=== PATIENT | male | born 1965 | race Caucasian/White ===

== ENCOUNTER 2017-07-24 09:11 | Emergency (ER) ==
[2017-07-24 09:17] VITALS: TEMP 97.2; BMI 31.4
--- NOTE | 2017-07-24 09:26 | ED.PDOC ---
General ED Provider: Dr. MAE DE LA TORRE Chief Complaint: Fall Stated Complaint: Falling episode/injury to rib cage Time Seen by Physician: 20:00 Mode of Arrival: Walk-In Information Source: Patient Referred to ED by: Other (Self) Nursing and Triage Documentation Reviewed and Agree: Yes Reviewed sepsis parameters & appropriate labs ordered?: No System Inflammatory Response Syndrome: Not Applicable Sepsis Protocol: For patient's 13 years and over: Temp is 96.8 and below OR 101 and greater Pulse >90 BPM Resp >20/minute Acutely Altered Mental Status Are patient's symptoms suggestive of a new infection, such as: -Pneumonia -Skin, Soft Tissue -Endocarditis -UTI -Bone, Joint Infection -Implantable Device -Acute Abdominal Infection -Wound Infection -Meningitis -Blood Stream Catheter Infection -Unknown System Inflammatory Response Syndrome: Not Applicable Trauma/Injury Complaint Exam - Truncal Trauma Complaint/Exam Location of Pain: Reports: Right, Anterior, Chest Onset: This Morning Symptoms Are: Still present Onset of Pain: Reports: Immediate Initial Severity: Moderate Current Severity: Moderate Mechanism: Reports: Blunt trauma, Direct blow, Fall Aggravating: Reports: Movement, Deep breathing, Cough Alleviating: Reports: Rest Associated Signs and Symptoms: Reports: Chest pain Related History: Reports: Occupational injury. Denies: Similar episode, Anticoagulants, Prior rib fracture, COPD Vertebral Tenderness Present: No Vertebral Deformity Present: No Trachial Deviation Present: No JVD Present: No Crepitus Present: No Diminished Breath Sounds: No Muffled Heart Sounds Present: No Paradoxical Chest Wall Movement Present: No Abdominal Guarding Present: No Abdominal Rigidity Present: No Referred Shoulder Pain (Kehr's Sign) Present: No Skin Findings: Present: Normal findings Differential Diagnoses: Chest Wall Contusion Review of Systems - Review Of Systems Constitutional: Reports: No symptoms Eyes: Reports: No symptoms Ears, Nose, Mouth, Throat: Reports: No symptoms Respiratory: Reports: No symptoms, Other (direct blow concrete floor when lost balance and fell to the floor) Cardiac: Reports: No symptoms GI: Reports: No symptoms : Reports: No symptoms Musculoskeletal: Reports: No symptoms, Other (rib and chest wall pain ) Skin: Reports: No symptoms Neurological: Reports: No symptoms Endocrine: Reports: No symptoms Hematologic/Lymphatic: Reports: No symptoms All Other Systems: Reviewed and Negative Past Medical History - Past Medical History Endocrine: Reports: None Cardiovascular: Reports: None Respiratory: Reports: None Hematological: Reports: None Gastrointestinal: Reports: None Genitourinary: Reports: None Neuro/Psych: Reports: None Musculoskeletal: Reports: None Cancer: Reports: None - Surgical History General Surgical History: Reports: None, Unknown - Family History Family History: Reports: Unknown - Social History Smoking Status: Current every day smoker Hx Substance Use: No Alcohol Screening: Occasionally Physical Exam - Physical Exam Appearance: Well-appearing Ill-appearing: None Pain Distress: Moderate Eyes: BETSY, EOMI ENT: Ears normal, Nose normal, Oropharynx normal Neck: Nonsupple Respiratory: Airway patent, Breath sounds clear, Breath sounds equal Cardiovascular: RRR, Pulses normal GI/: Soft, Nontender, No masses, Bowel sounds normal Musculoskeletal: Normal strength (Tenderness ) Skin: Warm, Dry, Normal color Neurological: Sensation intact, Motor intact, Alert, Oriented Psychiatric: Affect appropriate Re-Evaluation - Re-Evaluation Time of Re-Evaluation: 12:30 Status: Improved Appearance: NAD Lungs: Clear Skin: Warm and Dry Neuro: Alert and Oriented X3 CV: RRR Additional Comments: Explained results of testing and may be discharged- Critical Care Note - Critical Care Note Total Time (mins): 0 Course - Course Hematology/Chemistry: 07/24/17 11:00 07/24/17 11:00 Orders, Labs, Meds: Lab Review 07/24/17 07/24/17 11:00 11:00 WBC 9.76 RBC 5.65 Hgb 17.3 Hct 47.6 MCV 84.2 MCH 30.6 MCHC 36.3 H RDW Coeff of Ned 12.3 Plt Count 250 Immature Gran % (Auto) 0.2 Neut % (Auto) 61.4 Lymph % (Auto) 25.1 [place] % (Auto) 10.7 H Eos % (Auto) 2.0 Baso % (Auto) 0.6 Immature Gran # (Auto) 0.0 Neut # 6.0 Lymph # 2.5 [place] # 1.0 Eos # 0.2 Baso # 0.1 Sodium 135 L Potassium 4.2 Chloride 101 Carbon Dioxide 27 Anion Gap 11.2 BUN 11 Creatinine 0.78 Estimated GFR (MDRD) 104.00 BUN/Creatinine Ratio 14.10 Glucose 113 H Calcium 9.7 Total Bilirubin 0.6 AST 19 ALT 25 Alkaline Phosphatase 93 Total Protein 7.7 Albumin 4.1 Globulin 3.6 Albumin/Globulin Ratio 1.14 Orders Category Date Time Status IV ACCESS ONCE CARE 07/24/17 10:50 Active NPO REMINDER: IMAGING ONCE CARE 07/24/17 11:29 Completed CBC W/ AUTO DIFF Stat LAB 07/24/17 11:00 Completed CMP [COMPREHENSIVE METABOLIC PANEL] Stat LAB 07/24/17 11:00 Completed Ketorolac Tromethamine [Toradol] MEDS 07/24/17 11:26 Discontinued 30 mg IVP ONCE STA CHEST, 2 VIEWS PA & LAT Stat RADS 07/24/17 10:[address] CHEST W/WO CONTRAST Stat RADS 07/24/17 11:28 Completed RIBS, UNILATERAL RIGHT Stat RADS 07/24/17 10:08 Completed Medications Discontinued Medications Generic Name Dose Route Start Last Admin Trade Name Freq PRN Reason Stop Dose Admin Ketorolac Tromethamine 30 mg 07/24/17 11:26 07/24/17 11:35 Toradol IVP 07/24/17 11:27 30 mg ONCE STA Administration Vital Signs: Temp Pulse Resp BP Pulse Ox 07/24/17 09:12 97.2 F L 78 20 158/101 H 97 Departure - Departure Time of Disposition: 12:45 Disposition: HOME SELF-CARE Discharge Problem: Chest wall injury, Rib contusion Instructions: Rib Contusion (ED) Condition: Good Pt referred to PMD for follow-up: Yes (in 3-5 days) IPMP verified?: No Additional Instructions: May take Toradol 10 mg 1 tablet every 6 hours for control of pain -DO NOT Exceed 20 tablets in in 1 week May also take Tylenol ES 2 every 6 hrs. for additional pain relief ICE pack therapy to site of discomfort on chest wall for 20-30 minutes 3 times daily, Follow up PCP for re evaluation Take all meds as directed Prescriptions: Ketorolac Tromethamine [Toradol] 10 mg PO Q6H PRN #20 tablet PRN Reason: Chest wall pain Allergies/Adverse Reactions: Allergies No Known Allergies Allergy (Verified 07/24/17 09:17) Home Medications: Ambulatory Orders Ketorolac Tromethamine [Toradol] 10 mg PO Q6H PRN #20 tablet 07/24/17 Disposition Discussed With: Patient, Family
--- NOTE | 2017-07-24 10:36 | DI ---
EXAM: Two views of the chest. History: Chest pain and chest trauma. Findings: Heart size is within normal limits. Subsegmental atelectasis seen within the lingula. No consolidation. No appreciable pleural fluid and no pneumothorax. No acute osseous abnormalities. Impression: No acute cardiopulmonary process
--- NOTE | 2017-07-24 10:40 | DI ---
EXAM: Four views of the right ribs. History: Right rib trauma. Comparison: Chest radiograph 07/24/2017 Findings: Right lung is free of infiltrate. Pleural reaction along the right lateral lower hemithor ax. No definite rib fractures are seen. Impression: Pleural reaction along the right lower lateral hemithorax could indicate occult rib frac ture. Consider further evaluation with chest CT.
[2017-07-24] MEDS ORDERED: TORADOL IVP STA (11:26)
--- NOTE | 2017-07-24 12:29 | CT ---
Exam: CT chest with and without contrast. HISTORY: Right-sided rib pain after fall this morning. Questionable rib fracture and pleural reacti on. Procedures: 5 mm contiguous axial images were obtained through the chest prior to and following the intravenous administration of contrast. Sagittal and coronal reformatted images were also created an d reviewed. Comparison: Right rib series 07/24/2017. Findings: There is no axillary lymphadenopathy. Subcentimeter lymph nodes are noted throughout the m ediastinum, without mediastinal lymphadenopathy. Calcified mediastinal lymph nodes are noted. Ather osclerotic calcifications are noted, the thoracic aorta demonstrates no dilatation or dissection. Th ere is no pericardial effusion. Limited visualization of the upper abdominal soft tissues demonstrat es no acute process. Lung windows demonstrate minimal atelectasis in the lingula. There is no pneum othorax. There is no effusion or lobar consolidation. The trachea and mainstem bronchi appear patent . Bone windows demonstrate mild degenerative findings throughout the spine. There is no evidence of ac phuc fracture. Specifically, no right rib fracture or dislocation is identified. Impressions: Minimal atelectasis in the lingula. No acute cardiopulmonary disease. No effusion or rib fracture is identified. Findings were faxed to the emergency department at 12:15 p.m.
[2017-07-24 13:10] VITALS: BP 172/97
== END 2017-07-24 13:08 | disposition home or self-care (01) ==
LOC: ED 09:11
DX: S20.219A Contusion of unspecified front wall of thorax, initial encounter (principal); F17.210 Nicotine dependence, cigarettes, uncomplicated; W19.XXXA Unspecified fall, initial encounter
CPT/HCPCS: 36415; 80053; 85025; 96374; 99283

== ENCOUNTER 2017-08-14 08:50 | Outpatient (CLI) ==
--- NOTE | 2017-08-14 11:15 | MRI ---
EXAM: MRI right shoulder without contrast. HISTORY: Fall 3 weeks ago. Right shoulder pain. Decreased range of motion. No right shoulder surg edilberto reported. TECHNIQUE: Using a local coil on a high field strength magnet multiplanar multisequence MRI was perf ormed of the right shoulder without intravenous or intra-articular gadolinium contrast.. FINDINGS: I do not have prior radiographs of the right shoulder available for comparison at the time of this dictation. A Type I acromion. Coracoacromial ligament/arch intact with thickening. There is additionally a mod erate to marked degree of right acromioclavicular joint degenerative arthrosis/osteoarthrosis. Delto id musculature normal signal intensity. No appreciable free fluid subacromial/subdeltoid bursa. Muscle bulk of the rotator cuff shows no acute muscle strain or overt atrophy.. Supraspinatus tendin osis over the insertion and critical zone.. There is approximate 16 mm in length area of bursal side d fraying/shallow partial thickness bursal sided tearing. No full-thickness rotator cuff tear identi fied. Posterior intact infraspinatus and teres minor tendon fibers. Anterior intact subscapularis t endon fibers. The proximal extra-articular bicipital groove empty with nonvisualization of intact in tra-articular long head biceps tendon fibers compatible with full-thickness tear. The right humeral head is within normal limit in morphology and seated. Small focus of intraosseous c ysts/ganglion or intraosseous vascularity superior right humeral head. No right glenohumeral joint ce ntered subchondral bone marrow edema or bone erosions. Physiologic amount of fluid right glenohumera l joint. There is a linear increased T2 signal intensity within the substance of the posterior-super ior right glenoid labrum compatible with tear on this non-arthrographic examination. There is a stri ng of bright T2 signal intensity extending medially approximate 19 mm with the course measuring appro ximate 17 mm AP. This is suspicious for an associated paralabral cyst(s).. IMPRESSION: Moderate to marked right acromioclavicular joint degenerative arthrosis/osteoarthrosis. Supraspinatus tendinosis over the insertion and critical zone. 16 mm in length area of bursal sided fraying/shallow partial thickness bursal sided tearing. No full-thickness rotator cuff tear identifi ed. No appreciable free fluid subacromial/subdeltoid bursa. Empty proximal extraarticular bicipital groove with nonvisualization of intact intra-articular long h ead biceps tendon fibers compatible with full-thickness tear. Suspected tear posterior-superior right glenoid labrum. 19 mm string of fluid signal intensity assoc iated paralabral cyst(s) associated. Recommendation is obtainment and correlation with plain film radiographs of the right shoulder as non e are available for comparison at the time of this dictation.
== END 2017-08-14 08:51 | disposition home or self-care (01) ==
LOC: RAD 08:50
PROVIDERS: ATTEND Nurse Practitioner Family
DX: M25.511 Pain in right shoulder (principal)

== ENCOUNTER 2017-08-31 14:15 | Outpatient (RCR) ==
--- NOTE | 2017-08-28 13:11 | RS.OPPTEV2 ---
Date of Note: 08/27/17 Visit #: 1 Date of Evaluation: 08/27/17 Payer Source: [employer] Date of Onset/Injury/Change in Status: 07/24/17 Treatment Diagnosis: Right shoulder pain and neck pain History of Condition/Mechanism of Injury:: Patient reports right shoulder and right sided neck pain since falling and landing on the his right side on concrete. States the right arm was at his side when he fell. Reports no prior neck or shoulder problems prior to this injury. Prior Level of Function.....Patient was independent with: ADL's, Self Care, Work /Vocation, Caregiving, Ambulation/Mobility, Community Integration/Access Functional Limitations: Sleep, Self Care, ADL's, Reaching, Pushing, Pulling, Lifting, Carrying Current Subjective/complaints:: Patient reports right shoulder pain and also pain into the right side of the neck. States the first two weeks after the injury, he had a hard time doing anything due to the soreness. States now he continues to have pain and limited ROM of the right shoulder. Also reports neck stiffness and pain. He denies any symptoms of tingling or numbness. He is right hand dominant. States he has been having to use the left UE much more for selfcare and ADL's. States he does a lot of physical work at his job. He works for the [employer] and his job includes a variety of physical duties , including weed eating, shoveling, mowing, overhead reaching,pulling, pushing. States he does just about anything that needs to be done. Treatment Side (optional): Right Medical History Medical History: Arthritis ("all over") Hx Home Medications: Meloxicam, Methylprednisonlone. Patient's Goals: His goal is to get relief of shoulder and neck pain and get back to his regular work activities. Pain Assessment - Pain Description Pain Location: right shoulder, neck Pain Description: neck stiffness Current Pain Intensity: 3-4/10 Worst Pain Intensity: not quantified Functional Outcome Measure UE Functional Index: 50 (50/80=37.5% impairment) - G Codes & Severity Modifier G Codes & Modifier: NA Source of G Code score: NA Observation - Observation Inspection: Patient presents with no bruising or discoloration to the right UE or neck. Upon contraction of bilateral biceps, right UE demonstrates "Tony muscle" sign. Posture: Forward Head, Rounded Shoulders Handedness: Right Gait - Gait Pattern General Gait Pattern Observation: No Deviations/Normal - ROM Comments: Cervical flexion and extension is actively WNL's with reports of no significant increased discomfort. Cervical rotation approximately 60 degrees bilaterally with reports of tightness felt in the upper traps on the right. Shoulder ROM: Left WFL's Shoulder Muscle Strength: Left WFL's - Right Shoulder ROM Right Shoulder Flexion: 114 (degrees AROM) Right Shoulder Extension: 40 (degrees AROM) Right Shoulder Abduction: 105 (degrees AROM) Right Shoulder Internal Rotation: 50 (degrees AROM) Right Shoulder External Rotation: 48 (degrees AROM) Right Shoulder ROM Limitations: Pain Comments: Passive ROM right shoulder: flexion 120 degrees, abduction 110 degrees , ER 55 degrees. All limited by pain. *it should be noted that Left shoulder ER is limited to ~65 degrees. - Right Shoulder Strength Right Shoulder Flexion: 4+ Good + Right Shoulder Extension: 4+ Good + Right Shoulder Abduction: 4+ Good + Right Shoulder Adduction: 4+ Good + Right Shoulder External Rotation: 4+ Good + Right Shoulder Internal Rotation: 4+ Good + Comments: Pain with MMT right shoulder, mainly with shoulder flexion and abduction. - Special Tests Shoulder Empty Can (Supraspinatus) Test: Positive Right Shoulder Speed's Sign Test: Negative Right Shoulder Drop Arm Test: Negative Right Shoulder Negron-Jose Impingement Test: Positive Right Carbide Operator Strength Left Hand Carbide Operator Strength: 56 lbs. Right Hand Carbide Operator Strength: 40 lbs. Dynamometer Testing Position: 2nd Position Palpation Comments:: Patient reports tenderness at the right shoulder over the insertion site of the supraspinatus and infraspinatus tendons. Also reports tenderness at the right side of the base of the skull and along the right upper traps. Demonstrates moderate increased muscle tone along the right upper traps. Cervical paraspinals bilaterally demonstrate moderate increased tone. Reports no tenderness throughout the right biceps. Palpable difference in muscle mass comparing left to right biceps. Sensation - Sensation Right Upper Extremity: Intact/Normal Left Upper Extremity: Intact/Normal - Treatment Modality: Ultrasound Parameters/Method Applied: 1.5 w/cm 2 continuous X 12 mins to right shoulder ( anterior/lateral/posterior) aspect, and to right cervical paraspinals and upper traps. Patient Position: Sitting Interventions - Exercise/Activities/Manual Therapy Exercises/Activities: Patient instructed in pendulum exercise, and gentle stretching into cervical rotation and lateral flexion bilaterally. Manual Therapy: NA HOME EXERCISE PROGRAM: pendulum exercise, and gentle stretching into cervical rotation and lateral flexion bilaterally. - Charges Timed Code Treatment Minutes: 12 mins Total Treatment Time: 55 mins Procedures billed for this date of service:: BARBARA Low, Ultrasound EVALUATION COMPLEXITY LEVEL EVALUATION COMPLEXITY LEVEL: HISTORY: Low, EXAM OF BODY SYSTEMS: Medium ( limited sleep, selfcare and ADL's due to right UE limitation), CLINICAL PRESENTATION: Low, CLINICAL DECISION MAKING: Low Assessment Assessment: Patient presents to therapy with a diagnosis of right shoulder strain and acute strain of neck muscle. He reports pain and limitation of right shoulder, along with neck stiffness. He demonstrates limited active ROM of the right shoulder. He describes difficulty using the right UE (his dominant UE) for selfcare and ADL's due to pain. Neck AROM is limited into cervical rotation and presents moderate muscle guarding along the cervical paraspinals and upper traps. He demonstrates good potential to benefit from modalities, manual therapy, and stretching/ROM exercises to regain pain free right shoulder and neck AROM. Patient Education: Education of diagnosis, Body/Joint mechanics, Home Exercise Program, Activity Modification, Education of Plan of Care Rehab Potential: Good Short Term Goals Goal #1: Muscle tone of right upper traps decreased to minimal. Goal to be met by: 09/11/17 Goal #2: Right shoulder PROM WFL's. Goal to be met by: 09/11/17 Goal #3: Cervical rotation bilaterally WFL's with minimal discomfort. Goal to be met by: 09/11/17 Snf Goals Goal #1: Pt knows HEP and to continue ex's to maintain level of function after D /C. Goal to be met by: 10/07/17 Goal #2: Score on UE functional index improved to 72/80. Goal to be met by: 10/07/17 Goal #3: Right shoulder AROM WFL's to perform all ADL's and work activities. Goal to be met by: 10/07/17 Goal #4: Pt to demonstrate functional neck AROM without pain. Goal to be met by: 10/07/17 Plan - Treatment to be Provided Procedures: Therapeutic Exercises, Therapeutic Activity, Manual Therapy Modalities: Electrical Stimulation, Ultrasound/Phonophoresis, Cryotherapy, Hot Packs - Treatment Plan Frequency: 3 X week Duration: 4 weeks ORDER # VISITS AND/OR THROUGH DATE: 10/07/17 - Treatment Code (1) Shoulder pain Code(s): M25.519 - PAIN IN UNSPECIFIED SHOULDER Qualifiers: Chronicity: acute Laterality: right Qualified Code(s): M25.511 - Pain in right shoulder (2) Neck pain Code(s): M54.2 - CERVICALGIA Comments: M54.2 (3) Muscle tone increased Code(s): M62.89 - OTHER SPECIFIED DISORDERS OF MUSCLE Comments: M62.89 Increased muscle tone right upper traps and cervical paraspinals.
--- NOTE | 2017-08-29 16:20 | RS.OPPTDN ---
Subjective Date of Note: 08/29/17 Visit #: 2 Date of Evaluation: 08/27/17 Payer Source: [employer] Treatment Diagnosis: Right shoulder pain and neck pain Current Subjective/complaints:: Patient reports his right shoulder and upper trap pain is improving. States he can lift right arm overhead without increasing his pain. Pain Assessment - Pain Description Pain Location: Right shoulder and right upper traps. Pain Description: Aching Current Pain Intensity: 3/10 - Treatment Modality: Ultrasound Parameters/Method Applied: [id number] at 1.5w/cm2 to the right shoulder joint and upper traps prior to EX. Patient in sitting. Patient Position: Sitting - Heat/Cryotherapy Treatment: Hot Pack ([id number] to the right shoulder and upper traps prior to US and EX. Patient in sitting. ) Interventions - Exercise/Activities/Manual Therapy Exercises/Activities: [id number] Assisted stretching of the bilateral upper traps, levator scap, and cervical rotation. Isometric cervical retraction. PROM and AAROM of the right shoulder. Isometric shoulder ext and add with pillow. Discussed current HEP and patient in structed to start doorway stretching. Reviewed pendulum exercise. Patient given copies of new exercises. Total minutes of Exercise: 14mins Manual Therapy: NA HOME EXERCISE PROGRAM: pendulum exercise, and gentle stretching into cervical rotation and lateral flexion bilaterally. Isometric shoulder add. Doorway stretching. - Objective Findings Observations,measurements,etc.: Demos right shoulder PROM and AAROM WFL's today. - Charges Timed Code Treatment Minutes: 24mins Total Treatment Time: 40mins Procedures billed for this date of service:: HP, US, EX Assessment: Patient responds well to treatment and appears to be working on HEP. Patient Education: Body/Joint mechanics, Home Exercise Program, Home Safety, Activity Modification Comments: Discussed dx, body mechanics, and general safety with daily activities at home and work. Patient demonstrates compliance with HEP?: Yes Short Term Goals Goal #1: Muscle tone of right upper traps decreased to minimal. Goal to be met by: 09/11/17 Goal #2: Right shoulder PROM WFL's. Goal to be met by: 09/11/17 Progress towards Goal:: Partially Met Goal #3: Cervical rotation bilaterally WFL's with minimal discomfort. Goal to be met by: 09/11/17 Progress towards Goal:: Progressing Nitrate Operator Goals Goal #1: Pt knows HEP and to continue ex's to maintain level of function after D /C. Goal to be met by: 10/07/17 Progress towards goal: Progressing Goal #2: Score on UE functional index improved to 72/80. Goal to be met by: 10/07/17 Goal #3: Right shoulder AROM WFL's to perform all ADL's and work activities. Goal to be met by: 10/07/17 Progress towards goal: Progressing Goal #4: Pt to demonstrate functional neck AROM without pain. Goal to be met by: 10/07/17 Plan PLAN OF CARE EXPIRES ON:: 10/07/17 ORDER # VISITS AND/OR THROUGH DATE: 10/07/17 PLAN: Continue with modalities and progress exercise to reduce pain and increase functional use of the right UE, progressing toward full work duties.
--- NOTE | 2017-08-31 16:18 | RS.OPPTDN ---
Subjective Date of Note: 08/31/17 Visit #: 3 Date of Evaluation: 08/27/17 Payer Source: Workman's Comp Treatment Diagnosis: Right shoulder pain and neck pain Current Subjective/complaints:: Patient reports he is performing his exercises as instructed. He feels that his neck and shoulder are doing better. He is using the left UE more than the right. - Treatment Modality: Ultrasound Parameters/Method Applied: 1.5 w/cm2 X 12 mins to right upper traps and right shoulder. Patient Position: Sitting - Heat/Cryotherapy Treatment: Hot Pack (X 15 mins to right shoulder and upper traps prior to ex and US) Interventions - Exercise/Activities/Manual Therapy Exercises/Activities: Patient received PROM and end range stretching in all directions. He demonstrates PROM of the right shoulder WFL's. Reports less pain with PROM. Performs isometrics into shoulder flexion, extension, abduction , adduction. Performs resisted extension and forward puch with red theraband. Also performs resisted bilateral shoulder ER with red theraband. Reviewed neck stretching into rotation and lateral flexion. Also reviewed joint mechanics and avoiding straining the right shoulder. Total minutes of Exercise: X 16 mins Manual Therapy: NA HOME EXERCISE PROGRAM: pendulum exercise, and gentle stretching into cervical rotation and lateral flexion bilaterally. Isometric shoulder add. Doorway stretching. - Objective Findings Observations,measurements,etc.: Demonstrates improved cervical rotation bilaterally. Rotation to the right continues to be limited. Left Rotation is WFL's. Right Rotation is ~60-65 degrees. - Charges Timed Code Treatment Minutes: 28 mins Total Treatment Time: 43 mins Procedures billed for this date of service:: HP, US, Ex Assessment: Patient with subjective reports of improvement with neck and right shoulder pain. Still has dull pain with movement. PROM is WFL's. Demonstrates potential to regain full, pain-free AROM of the right shoulder and neck. Patient Education: Education of diagnosis, Body/Joint mechanics, Home Exercise Program, Education of Plan of Care Patient demonstrates compliance with HEP?: Yes Short Term Goals Goal #1: Muscle tone of right upper traps decreased to minimal. Goal to be met by: 09/11/17 Goal #2: Right shoulder PROM WFL's. Goal to be met by: 09/11/17 Progress towards Goal:: Met Goal #3: Cervical rotation bilaterally WFL's with minimal discomfort. Goal to be met by: 09/11/17 Progress towards Goal:: Progressing Comments:: rotation to the right continues to be limited. Senior Care Goals Goal #1: Pt knows HEP and to continue ex's to maintain level of function after D /C. Goal to be met by: 10/07/17 Progress towards goal: Progressing Goal #2: Score on UE functional index improved to 72/80. Goal to be met by: 10/07/17 Goal #3: Right shoulder AROM WFL's to perform all ADL's and work activities. Goal to be met by: 10/07/17 Progress towards goal: Progressing Goal #4: Pt to demonstrate functional neck AROM without pain. Goal to be met by: 10/07/17 Progress towards goal: Progressing Plan PLAN OF CARE EXPIRES ON:: 10/07/17 ORDER # VISITS AND/OR THROUGH DATE: 10/07/17 PLAN: Continue with modalities and progression of exercises to improve his use of the right UE.
== END 2017-09-01 ==
PROVIDERS: ATTEND Orthopaedic Surgery
DX: S46.911A Strain of unspecified muscle, fascia and tendon at shoulder and upper arm level, right arm, initial encounter (principal); S16.1XXA Strain of muscle, fascia and tendon at neck level, initial encounter

== ENCOUNTER 2017-09-17 14:15 | Outpatient (RCR) ==
--- NOTE | 2017-09-04 10:01 | RS.OPPTDN ---
Subjective Date of Note: 09/03/17 Visit #: 4 Date of Evaluation: 08/27/17 Payer Source: Workman's Comp Treatment Diagnosis: Right shoulder pain and neck pain Current Subjective/complaints:: Patient reports right shoulder and neck pain is slowly getting better. States he is careful to avoid heavy lifting at work. States he is working on HEP. Pain Assessment - Pain Description Pain Location: Right upper traps and shoulder Current Pain Intensity: mild to mod - Treatment Modality: Ultrasound Parameters/Method Applied: [id number] at 1.5w/cm2 to the right cervical paraspinals , traps, and mid scap region prior to MT and EX. Patient Position: Sitting - Heat/Cryotherapy Treatment: Hot Pack ([id number] to the right shouulder and upper traps. Patient in sitting. ) Interventions - Exercise/Activities/Manual Therapy Exercises/Activities: Patient received PROM of the right shoulder, all directions. Focus on cervical ROM and stretching of the upper traps. Assisted stretching lat flexion, levator scap, mid scap, and rotation, bilaterally. Isometric cervical retraction. Scap retraction. Began cervical lateral flexion stretch with opposite stretching into rotation and lateral flexion. Discussed body mechanics and safety with ADL's. Total minutes of Exercise: 15mins Manual Therapy: [id number] Myofascial release to the right upper traps and mid scap musculature. Trigger point release through this area, with an active trigger point noted in the mid upper trap. Total minutes of Manual Therapy: 12mins HOME EXERCISE PROGRAM: pendulum exercise, and gentle stretching into cervical rotation and lateral flexion bilaterally. Isometric shoulder add. Doorway stretching. - Charges Timed Code Treatment Minutes: 39mins Total Treatment Time: 59mins Procedures billed for this date of service:: HP, US, MT, EX Assessment: Patient responding well to treatment with reports of pain reduction and ability to perform light activities at work and home. Patient Education: Education of diagnosis, Body/Joint mechanics, Home Exercise Program, Home Safety, Activity Modification Patient demonstrates compliance with HEP?: Yes Short Term Goals Goal #1: Muscle tone of right upper traps decreased to minimal. Goal to be met by: 09/11/17 Goal #2: Right shoulder PROM WFL's. Goal to be met by: 09/11/17 Progress towards Goal:: Met Goal #3: Cervical rotation bilaterally WFL's with minimal discomfort. Goal to be met by: 09/11/17 Progress towards Goal:: Partially Met Shelter Goals Goal #1: Pt knows HEP and to continue ex's to maintain level of function after D /C. Goal to be met by: 10/07/17 Progress towards goal: Progressing Goal #2: Score on UE functional index improved to 72/80. Goal to be met by: 10/07/17 Goal #3: Right shoulder AROM WFL's to perform all ADL's and work activities. Goal to be met by: 10/07/17 Progress towards goal: Progressing Goal #4: Pt to demonstrate functional neck AROM without pain. Goal to be met by: 10/07/17 Progress towards goal: Progressing Plan PLAN OF CARE EXPIRES ON:: 10/07/17 ORDER # VISITS AND/OR THROUGH DATE: 10/07/17 PLAN: Continue modalities and progess exercise to reduce pain and increase patients functional activity level at home and work.
--- NOTE | 2017-09-05 16:22 | RS.OPPTDN ---
Subjective Date of Note: 09/05/17 Visit #: 5 Date of Evaluation: 08/27/17 Payer Source: Workman's Comp Treatment Diagnosis: Right shoulder pain and neck pain Current Subjective/complaints:: Reports right shoulder joint pain is much better. States right upper trap pain continues but is also improving. States he is doing light activities at work, but avoids heavy lifting. Pain Assessment - Pain Description Pain Location: Right shoulder, scapula, and upper traps. Current Pain Intensity: 2/10 Other Comments regarding Pain:: Reports pain level is low but he is only performing light duties. - Treatment Modality: Ultrasound Parameters/Method Applied: [id number] at 1.5w/cm2 to the right upper traps and shoulder joint prior to MT and EX. Patient Position: Sitting Interventions - Exercise/Activities/Manual Therapy Exercises/Activities: Patient received PROM of the right shoulder, all directions. Focus on cervical ROM and stretching of the upper traps. Assisted stretching lat flexion, levator scap, mid scap, and rotation, bilaterally. Isometric cervical retraction. Scap retraction. Cervical lateral flexion stretch with opposite stretching into rotation and lateral flexion. 7# wand for bilateral shoulder overhead flexion. Green theraband for scapular retraction 2s/ 10reps and bilateral shoulder ER, 1s/10reps (reports discomfort at end of set). Reveiwed HEP and general safety precautions. Total minutes of Exercise: 15mins Manual Therapy: [id number] Myofascial release to the right upper traps and mid scap musculature. Trigger point release through this area, with right mid upper trap point now latent. Total minutes of Manual Therapy: 14mins HOME EXERCISE PROGRAM: pendulum exercise, and gentle stretching into cervical rotation and lateral flexion bilaterally. Isometric shoulder add. Doorway stretching. - Charges Timed Code Treatment Minutes: 41mins Total Treatment Time: 56mins Procedures billed for this date of service:: HP, US, MT, EX Assessment: Patient responding to treatment with reports of reduction in pain and with reduction in trigger points. Patient Education: Home Exercise Program, Home Safety, Activity Modification Patient demonstrates compliance with HEP?: Yes Short Term Goals Goal #1: Muscle tone of right upper traps decreased to minimal. Goal to be met by: 09/11/17 Progress towards Goal:: Progressing Goal #2: Right shoulder PROM WFL's. Goal to be met by: 09/11/17 Progress towards Goal:: Met Goal #3: Cervical rotation bilaterally WFL's with minimal discomfort. Goal to be met by: 09/11/17 Progress towards Goal:: Partially Met Care Home Goals Goal #1: Pt knows HEP and to continue ex's to maintain level of function after D /C. Goal to be met by: 10/07/17 Progress towards goal: Progressing Goal #2: Score on UE functional index improved to 72/80. Goal to be met by: 10/07/17 Goal #3: Right shoulder AROM WFL's to perform all ADL's and work activities. Goal to be met by: 10/07/17 Progress towards goal: Progressing Comments: Performing light activities at work Goal #4: Pt to demonstrate functional neck AROM without pain. Goal to be met by: 10/07/17 Progress towards goal: Progressing Plan PLAN OF CARE EXPIRES ON:: 10/07/17 ORDER # VISITS AND/OR THROUGH DATE: 10/07/17 PLAN: Continue modalities, manual therapy, and progressive strengthening exercise to reduce pain and increase patients functional use of the right UE.
--- NOTE | 2017-09-07 14:24 | RS.CXNS ---
Date of scheduled appointment: 09/07/17 Type: Cancel (Patient calls to cancel his appointment. States he has an emergency. Patient reschedules for next week.)
--- NOTE | 2017-09-10 15:35 | RS.OPPTDN ---
Subjective Date of Note: 09/10/17 Visit #: 6 Date of Evaluation: 08/27/17 Payer Source: Workman's Comp Treatment Diagnosis: Right shoulder pain and neck pain Current Subjective/complaints:: Patient says he can tell he has more mobility in his neck. He reports no pain at the R shoulder and feels he does not have any limitation with motion/strength to the shoulder as well. He denies popping or grinding. His only c/o appears to be R sided neck tightness or quick turns to the R. He admits improved ability to turn his head while driving and is eager to return to work (09/19/17 is his next follow up appt). Pain Assessment - Pain Description Pain Location: mild soreness at the R UT - Treatment Modality: Ultrasound Parameters/Method Applied: continuous @ 1.6 w/cm2 x 12 mins along the R UT to the posterior shoulder with mod palpation Patient Position: Sitting Interventions - Exercise/Activities/Manual Therapy Exercises/Activities: Patient received PROM of the right shoulder, all directions. Focus on cervical ROM and stretching of the upper traps. Assisted stretching lat flexion, levator scap, mid scap, and rotation, bilaterally. Isometric cervical retraction. Scap retraction. Cervical lateral flexion stretch with opposite stretching into rotation and lateral flexion. Manual isometrics all dir for shoulder flex/ext/IR/ER 2x5. 7# wand for bilateral shoulder overhead flexion. Green theraband for scapular retraction 2s/10reps and bilateral shoulder ER, 1s/10reps (reports discomfort at end of set). Reveiwed HEP and general safety precautions. Total minutes of Exercise: 13 Manual Therapy: [id number] Myofascial release to the right upper traps and mid scap musculature. Trigger point release through this area, with right mid upper trap point now latent. HOME EXERCISE PROGRAM: pendulum exercise, and gentle stretching into cervical rotation and lateral flexion bilaterally. Isometric shoulder add. Doorway stretching. - Charges Timed Code Treatment Minutes: 39 Total Treatment Time: 39 Procedures billed for this date of service:: u/s, MT, EX Assessment: Patient maintains moderate increase in muscle guarding to the R UT, but does demo improved mobility per subjective reports and reduced active trigger points present. No R shoulder pain at present and all ROM to the R shoulder are WNL passively, FLEX to 155 degrees actively, ABD to 145 degrees actively. MMT 5/5 all ranges. Patient Education: Home Exercise Program, Education of Plan of Care Patient demonstrates compliance with HEP?: Yes Short Term Goals Goal #1: Muscle tone of right upper traps decreased to minimal. Goal to be met by: 09/11/17 Progress towards Goal:: Progressing Goal #2: Right shoulder PROM WFL's. Goal to be met by: 09/11/17 Progress towards Goal:: Met Goal #3: Cervical rotation bilaterally WFL's with minimal discomfort. Goal to be met by: 09/11/17 Progress towards Goal:: Met Longterm Goals Goal #1: Pt knows HEP and to continue ex's to maintain level of function after D /C. Goal to be met by: 10/07/17 Progress towards goal: Progressing Goal #2: Score on UE functional index improved to 72/80. Goal to be met by: 10/07/17 Comments: Reassess next week Goal #3: Right shoulder AROM WFL's to perform all ADL's and work activities. Goal to be met by: 10/07/17 Progress towards goal: Progressing Goal #4: Pt to demonstrate functional neck AROM without pain. Goal to be met by: 10/07/17 Progress towards goal: Progressing Plan PLAN OF CARE EXPIRES ON:: 10/07/17 ORDER # VISITS AND/OR THROUGH DATE: 10/07/17 PLAN: Patient to continue for MT to the R UT and further improve R UE strength through next week at follow up.
--- NOTE | 2017-09-12 15:29 | RS.OPPTDN ---
Subjective Date of Note: 09/12/17 Visit #: 7 Date of Evaluation: 08/27/17 Payer Source: Workman's Comp Treatment Diagnosis: Right shoulder pain and neck pain Current Subjective/complaints:: Patient reports right shoulder is barely giving him any trouble. States he is able to lay on the right side at night. States he has more motion in his neck. States he can turn his head without having to turn his body. States he has mild discomfort in the right neck area. He is continuing the shoulder ROM and neck stretches at home as instructed. He goes back to the doctor on 09/19/17 and he hopes to be released to full duty. Pain Assessment - Pain Description Pain Location: right upper traps Current Pain Intensity: mild 1-2/10 - Treatment Modality: Ultrasound Parameters/Method Applied: X 10 mins to right upper traps and cervical paraspinals @ 1.5 w/cm2 continuous, X 7 mins to right shoulder @ 1.5 w/cm2 continuous. Patient Position: Sitting Interventions - Exercise/Activities/Manual Therapy Exercises/Activities: 7# wand for bilateral shoulder overhead flexion. Performed on the [employer] weight system with 20# for scapular retraction, 1 set of 10 reps each for upper, middle, and lower traps. Perform lat pull X 10 reps @ 30#'s. Reports no pain in neck or shoulder, just a "good burn" in the muscles. Total minutes of Exercise: X 14 mins Manual Therapy: x 16 mins Myofascial release to the right cervical paraspinas, right upper traps and mid scap musculature. Muscle respond well to manual therapy, as muscle decreases from moderate guarding to minimal guarding. HOME EXERCISE PROGRAM: pendulum exercise, and gentle stretching into cervical rotation and lateral flexion bilaterally. Isometric shoulder add. Doorway stretching. - Objective Findings Observations,measurements,etc.: Demonstrates functional right shoulder AROM. Right shoulder internal rotation is slightly tight at end range, with mild discomfort. Neck AROM is WFL's. Demonstrates the ability to perform functional bilateral neck rotation without compensating by turning his upper body. Muscle tone in right upper traps continues to exhibit moderate increased tone. - Charges Timed Code Treatment Minutes: 47 mins Total Treatment Time: 47 mins Procedures billed for this date of service:: US, Manual therapy, EX Assessment: Patient is progressing very well. Reports very little discomfort and functional AROM of the right shoulder. Reports mild discomfort in the upper traps and continues to exhibit moderate muscle guarding in that area. Patient tolerates postural strengthening exercises with 20-30#'s without complaints of pain. Will benefit from continued treatment and progression of postural strengthening to return to his prior level of function at work. Patient Education: Education of diagnosis, Body/Joint mechanics, Education of Plan of Care Patient demonstrates compliance with HEP?: Yes Short Term Goals Goal #1: Muscle tone of right upper traps decreased to minimal. Goal to be met by: 09/11/17 Progress towards Goal:: Progressing Goal #2: Right shoulder PROM WFL's. Goal to be met by: 09/11/17 Progress towards Goal:: Met Goal #3: Cervical rotation bilaterally WFL's with minimal discomfort. Goal to be met by: 09/11/17 Progress towards Goal:: Met Retail Performance Specialist Goals Goal #1: Pt knows HEP and to continue ex's to maintain level of function after D /C. Goal to be met by: 10/07/17 Progress towards goal: Progressing Goal #2: Score on UE functional index improved to 72/80. Goal to be met by: 10/07/17 Goal #3: Right shoulder AROM WFL's to perform all ADL's and work activities. Goal to be met by: 10/07/17 Progress towards goal: Met Goal #4: Pt to demonstrate functional neck AROM without pain. Goal to be met by: 10/07/17 Progress towards goal: Progressing Comments: Functional neck AROM, but continue mild discomfort and muscle guarding. Plan PLAN OF CARE EXPIRES ON:: 10/07/17 ORDER # VISITS AND/OR THROUGH DATE: 10/07/17 PLAN: Continue with progression of exercises for postural strengthening.
--- NOTE | 2017-09-14 17:04 | RS.OPPTDN ---
Subjective Date of Note: 09/14/17 Visit #: 8 Date of Evaluation: 08/27/17 Payer Source: Workman's Comp Treatment Diagnosis: Right shoulder pain and neck pain Current Subjective/complaints:: Patient states he was a little sore after the last therapy session. States it was not pain, just muscle soreness. Reports his right shoulder is doing very well. He again states that he goes back to the doctor next week and he hopes to be released to return to full work duties. Pain Assessment - Pain Description Pain Description: soreness in upper traps - Treatment Modality: Ultrasound Parameters/Method Applied: X 8 mins continuous @ 1.5 w/cm to right shoulder, X 10 mins to right upper traps, cervical paraspinals, and levator scapula. Patient Position: Sitting Interventions - Exercise/Activities/Manual Therapy Exercises/Activities: Assisted with cervical stretching into left lateral flexion and rotation. 7# wand for bilateral shoulder overhead flexion. Performed on the [employer] weight system with 20# for scapular retraction, 1 set of 10 reps each for upper, middle, and lower traps. Perform lat pull X 10 reps @ 30#'s. No pain with exercises. Total minutes of Exercise: X 16 mins Manual Therapy: x 15 mins Myofascial release to the right cervical paraspinas, right upper traps and mid scap musculature. Muscle tone in right upper traps is minimal. HOME EXERCISE PROGRAM: pendulum exercise, and gentle stretching into cervical rotation and lateral flexion bilaterally. Isometric shoulder add. Doorway stretching. - Other Services Treatment Details: Patient demonstrates functional AROM of the neck and right shoulder. States he can still feel a difference in the right upper traps compared to the left with exercises in the department, but states it is not painful. - Charges Timed Code Treatment Minutes: 49 mins Total Treatment Time: 49 mins Procedures billed for this date of service:: US, EX, manual therapy Assessment: Patient continues to report he is feeling better. Reports minor soreness in the right upper traps after the last therapy session and when coming into therapy today. He demonstrates good tolerance with all activities in the department. He is compliant and receptive to all instruction. Patient demonstrates compliance with HEP?: Yes Short Term Goals Goal #1: Muscle tone of right upper traps decreased to minimal. Goal to be met by: 09/11/17 Progress towards Goal:: Met Goal #2: Right shoulder PROM WFL's. Goal to be met by: 09/11/17 Progress towards Goal:: Met Goal #3: Cervical rotation bilaterally WFL's with minimal discomfort. Goal to be met by: 09/11/17 Progress towards Goal:: Met Fruit And Vegetable Inspector Goals Goal #1: Pt knows HEP and to continue ex's to maintain level of function after D /C. Goal to be met by: 10/07/17 Progress towards goal: Progressing Goal #2: Score on UE functional index improved to 72/80. Goal to be met by: 10/07/17 Goal #3: Right shoulder AROM WFL's to perform all ADL's and work activities. Goal to be met by: 10/07/17 Progress towards goal: Met Goal #4: Pt to demonstrate functional neck AROM without pain. Goal to be met by: 10/07/17 Progress towards goal: Progressing Comments: Neck AROM is WFL's, with soreness reported in right upper traps. Plan PLAN OF CARE EXPIRES ON:: 10/07/17 ORDER # VISITS AND/OR THROUGH DATE: 10/07/17 PLAN: Continue with plan of care to progress exercises.
--- NOTE | 2017-09-17 15:24 | RS.OPPTDN ---
Subjective Date of Note: 09/17/17 Visit #: 9 Date of Evaluation: 08/27/17 Payer Source: Workman's Comp Treatment Diagnosis: Right shoulder pain and neck pain Current Subjective/complaints:: Patient reports he is doing all ADL's at home and most of his moderate activities at work without difficulty. He has not performed heavy activities but feels like he can. States he has been holding off as he is not sure if he needs to be released. States he feels he is 98% better and has increased activity at home, including mowing. Pain Assessment - Pain Description Pain Location: Right shoulder Current Pain Intensity: No pain Other Comments regarding Pain:: Reports no pain with daily activities or with resistive exercise. Interventions - Exercise/Activities/Manual Therapy Exercises/Activities: Reviewed HEP of AROM, stretching, and resistive strengthening with therabands. Patient demos right shoulder strength 5/5 MMT all directions, including IR and ER. 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 Patient performs resistive bilateral shoulder ER with green theraband and scapular retraction with blue theraband, 2s /10reps each. Total minutes of Exercise: 15mins Manual Therapy: NA HOME EXERCISE PROGRAM: pendulum exercise, and gentle stretching into cervical rotation and lateral flexion bilaterally. Isometric shoulder add. Doorway stretching. - Objective Findings Observations,measurements,etc.: Right shoulder full ROM and 5/5 MMT. Demos cervical ROM WFL, denies pain. Improvement of the Upper Extremity Functional Index to 78/80. - Charges Timed Code Treatment Minutes: 15mins Total Treatment Time: 20mins Procedures billed for this date of service:: EX Assessment: Patient has progressed well with treatment and has met all goals. He is independent with HEP and feels he will be able to return to full work duties. Patient Education: Home Exercise Program, Education of Plan of Care Comments: Reveiwed and finalized all patient education and HEP. Patient demonstrates compliance with HEP?: Yes Short Term Goals Goal #1: Muscle tone of right upper traps decreased to minimal. Goal to be met by: 09/11/17 Progress towards Goal:: Met Goal #2: Right shoulder PROM WFL's. Goal to be met by: 09/11/17 Progress towards Goal:: Met Goal #3: Cervical rotation bilaterally WFL's with minimal discomfort. Goal to be met by: 09/11/17 Progress towards Goal:: Met [employer] Goals Goal #1: Pt knows HEP and to continue ex's to maintain level of function after D /C. Goal to be met by: 10/07/17 Progress towards goal: Met Goal #2: Score on UE functional index improved to 72/80. Goal to be met by: 10/07/17 Progress towards goal: Met Comments: 78/80 Goal #3: Right shoulder AROM WFL's to perform all ADL's and work activities. Goal to be met by: 10/07/17 Progress towards goal: Met Goal #4: Pt to demonstrate functional neck AROM without pain. Goal to be met by: 10/07/17 Progress towards goal: Met Plan PLAN OF CARE EXPIRES ON:: 10/07/17 ORDER # VISITS AND/OR THROUGH DATE: 10/07/17 PLAN: Discharge with HEP as patient has met all goals.
== END 2017-10-01 23:59 ==
PROVIDERS: ATTEND Orthopaedic Surgery
DX: S46.911D Strain of unspecified muscle, fascia and tendon at shoulder and upper arm level, right arm, subsequent encounter (principal); S16.1XXD Strain of muscle, fascia and tendon at neck level, subsequent encounter; M25.511 Pain in right shoulder; M54.2 Cervicalgia; M62.89 Other specified disorders of muscle